=== PATIENT | male | born 1940 | race Two or more races ===

== ENCOUNTER 2023-04-11 22:54 | Inpatient (IN) | payer MEDICARE, OTHER ==
[~2023-04-11] VITALS: Ht 177.8 cm; Wt 51.3 kg
[2023-04-11] MEDS ORDERED: HYDROCODONE/APAP 5/325MG TABLET ONE (23:37)
[2023-04-12] MEDS ORDERED: HYDROCODONE/APAP 5/325MG TABLET PO ONE
[2023-04-12 01:22] LABS: BASOPHILS # (AUTO) 0.1 K/uL (0.0-0.2); BASOPHILS % (AUTO) 0.5 % (0.0-2.0); EOSINOPHILS # (AUTO) 0.1 K/uL (0.0-0.7); EOSINOPHILS % (AUTO) 1.1 % (0.0-6.0); HEMATOCRIT 26 % (39-51); HEMOGLOBIN 8.4 g/dL (13.5-17.5); LYMPHOCYTES % (AUTO) 9.5 % (20.0-44.0); MEAN CORPUSCULAR HEMOGLOBIN 31 PG (26.0-33.0); MEAN CORPUSCULAR HGB CONC 33 g/dl (31.0-36.0); MEAN CORPUSCULAR VOLUME 93 fL (80-96); MONOCYTES # (AUTO) 0.7 K/uL (0.1-1.30); MONOCYTES % (AUTO) 6.8 % (2.0-12.0); NEUTROPHILS # (AUTO) 8.4 K/uL (1.8-8.9); NEUTROPHILS % (AUTO) 82.1 % (43.0-81.0); PLATELET COUNT (AUTO) 218 K/uL (150-450); RED BLOOD CELL COUNT(AUTO) 2.75 MIL/uL (4.5-6.0); RED CELL DISTRIBUTION WIDTH 16.5 % (11.5-15.0); WHITE BLOOD COUNT (AUTO) 10.2 K/uL (4.3-11.0)
[2023-04-12 01:31] LABS: CALCIUM, SERUM 9.3 mg/dL (8.5-10.1); CARBON DIOXIDE 18 mmol/L (21-32); CHLORIDE 108 mmol/L (98-107); CREATININE 5.8 mg/dL (0.6-1.3); GLUCOSE 97 mg/dL (74-106); POTASSIUM 4.7 mmol/L (3.5-5.1); SODIUM SERUM 139 mmol/L (136-145); UREA NITROGEN, BLOOD 56 mg/dL (7-18)
[2023-04-12 01:35] LABS: INR 0.98 (0.91-1.10); PARTIAL THROMBOPLASTIN TIME 28.2 SEC (24.3-34.3); PROTHROMBIN TIME 10.3 SECS (9.2-11.1)
[2023-04-12] MEDS ORDERED: IV NS 0.9% 1,000 ML BAG IV ONE (02:00)
[2023-04-12 02:50] VITALS: BP 130/60; TEMP 99; O2SAT 96
[2023-04-12] MEDS ORDERED: ONDANSETRON HCL/PF 4 MG/2 ML VIAL IVP PRN (03:00)
[2023-04-12] MEDS: MORPHINE SULFATE INJ 2 MG/ML DISP.SYRIN IV PRN ×3 (03:17→14:02)
[2023-04-12] MEDS: IV NS 0.9% 1,000 ML IV PRN ×2 (03:18→17:50)
[2023-04-12 04:00] VITALS: BP 130/60; TEMP 99; O2SAT 96
[2023-04-12 05:54] LABS: BASOPHILS % (AUTO) 0.5 % (0.0-2.0); EOSINOPHILS # (AUTO) 0.1 K/uL (0.0-0.7); EOSINOPHILS % (AUTO) 0.9 % (0.0-6.0); HEMATOCRIT 25 % (39-51); HEMOGLOBIN 8.1 g/dL (13.5-17.5); LYMPHOCYTES # (AUTO) 0.9 K/uL (0.8-4.8); LYMPHOCYTES % (AUTO) 9.5 % (20.0-44.0); MEAN CORPUSCULAR HEMOGLOBIN 31 PG (26.0-33.0); MEAN CORPUSCULAR HGB CONC 33 g/dl (31.0-36.0); MEAN CORPUSCULAR VOLUME 95 fL (80-96); MONOCYTES # (AUTO) 0.7 K/uL (0.1-1.30); MONOCYTES % (AUTO) 7.2 % (2.0-12.0); NEUTROPHILS # (AUTO) 7.8 K/uL (1.8-8.9); NEUTROPHILS % (AUTO) 81.9 % (43.0-81.0); PLATELET COUNT (AUTO) 204 K/uL (150-450); RED BLOOD CELL COUNT(AUTO) 2.62 MIL/uL (4.5-6.0); RED CELL DISTRIBUTION WIDTH 16.5 % (11.5-15.0); WHITE BLOOD COUNT (AUTO) 9.6 K/uL (4.3-11.0)
[2023-04-12 06:20] LABS: CALCIUM, SERUM 9.3 mg/dL (8.5-10.1); CARBON DIOXIDE 17 mmol/L (21-32); CHLORIDE 108 mmol/L (98-107); CREATININE 5.7 mg/dL (0.6-1.3); GLUCOSE 93 mg/dL (74-106); POTASSIUM 4.7 mmol/L (3.5-5.1); SODIUM SERUM 139 mmol/L (136-145); UREA NITROGEN, BLOOD 57 mg/dL (7-18)
[2023-04-12 08:00] VITALS: BP 127/71; TEMP 98.2; O2SAT 100
[2023-04-12] MEDS ORDERED: ATOR40TA PO (08:17)
[2023-04-12] MEDS ORDERED: MIRT7.5T10 PO (08:17)
[2023-04-12] MEDS ORDERED: ALPR0.255 PO (08:17)
[2023-04-12] MEDS ORDERED: AMLO-212 PO (08:17)
[2023-04-12] MEDS ORDERED: DOCU-141 PO (08:17)
[2023-04-12] MEDS ORDERED: LOSA50TA39 PO (08:17)
[2023-04-12] MEDS ORDERED: TRAZ-182 PO (08:17)
[2023-04-12] MEDS: DOCUSATE SODIUM 100 MG CAPSULE PO SCH ×2 (10:37→17:06)
[2023-04-12] MEDS: HYDROCODONE/APAP 5/325MG TABLET PO PRN (15:03)
[2023-04-12 15:30] LABS: APPEARANCE,URINE SLIGHTLY CLOUDY (CLEAR); BILIRUBIN,URINE NEGATIVE (NEGATIVE); BLOOD, URINE 3+ Ery/uL (NEGATIVE); COLOR,URINE YELLOW (YELLOW); KETONES,URINE NEGATIVE (NEGATIVE); LEUKOCYTE ESTERASE ,URINE TRACE (NEGATIVE); NITRITE, URINE NEGATIVE (NEGATIVE); PROTEIN,URINE 2+ mg/dl (NEGATIVE); UGLUCOSE NEGATIVE (NEGATIVE); UROBILINOGEN,URINE 0.2 EU/dL (0.2)
[2023-04-12 15:32] LABS: CREATININE, URINE 69.8 MG/DL (30.0-125.0); URINE TOTAL PROTEIN 130.2 mg/dL (0-11.9)
[2023-04-12 15:37] VITALS: BP 126/75; TEMP 98.6; O2SAT 96
[2023-04-12 16:14] LABS: ADD URINE CULTURE NO; BACTERIA,URINE None seen /HPF (None Seen); MUCUS,URINE Moderate /LPF (None Seen); RBC,URINE 51-80 /HPF (0-2); SQUAMOUS EPITHELIAL CELL,UR None Seen /HPF (None Seen)
[2023-04-12 17:11] LABS: EOSINOPHIL,URINE Few
[2023-04-12 19:00] VITALS: BP 139/78; TEMP 98.9; O2SAT 94
[2023-04-13] MEDS ORDERED: diphenhydrAMINE HCL ELIX 25 MG/10 ML UDC PO PRN (03:00)
[2023-04-13] MEDS: MORPHINE SULFATE INJ 2 MG/ML DISP.SYRIN IV PRN ×2 (05:11→17:51)
[2023-04-13 08:18] VITALS: BP 125/84; TEMP 98.2; O2SAT 96
[2023-04-13] MEDS ORDERED: Z GUARD REMEDY 4 OZ OINT TP PRN (09:00)
[2023-04-13] MEDS ORDERED: PERMETHRIN 5% CRM 60 GM TUBE TP ONE ×2 (09:00→09:30)
[2023-04-13] MEDS: DOCUSATE SODIUM 100 MG CAPSULE PO SCH (09:16)
[2023-04-13] MEDS: Z GUARD REMEDY 4 OZ OINT TP SCH (09:16)
[2023-04-13] MEDS ORDERED: NEPRO VAN 237 ML CAN PO PRN (11:00)
[2023-04-13 15:54] VITALS: BP 149/85; TEMP 97.9; O2SAT 95
[2023-04-13] MEDS: HYDROCODONE/APAP 5/325MG TABLET PO PRN (16:37)
[2023-04-13] MEDS: IV NS 0.9% 1,000 ML IV PRN (16:55)
[2023-04-13 20:00] VITALS: BP 137/77; TEMP 98.2; O2SAT 97
[2023-04-14] MEDS: HYDROCODONE/APAP 5/325MG TABLET PO PRN ×2 (05:49→17:22)
[2023-04-14 06:03] LABS: BASOPHILS % (AUTO) 0.3 % (0.0-2.0); EOSINOPHILS # (AUTO) 0.2 K/uL (0.0-0.7); HEMATOCRIT 24 % (39-51); HEMOGLOBIN 7.5 g/dL (13.5-17.5); LYMPHOCYTES # (AUTO) 0.7 K/uL (0.8-4.8); LYMPHOCYTES % (AUTO) 7.9 % (20.0-44.0); MEAN CORPUSCULAR HEMOGLOBIN 31 PG (26.0-33.0); MEAN CORPUSCULAR HGB CONC 32 g/dl (31.0-36.0); MEAN CORPUSCULAR VOLUME 97 fL (80-96); MONOCYTES # (AUTO) 0.8 K/uL (0.1-1.30); MONOCYTES % (AUTO) 9.2 % (2.0-12.0); NEUTROPHILS % (AUTO) 80.6 % (43.0-81.0); PLATELET COUNT (AUTO) 174 K/uL (150-450); RED BLOOD CELL COUNT(AUTO) 2.45 MIL/uL (4.5-6.0); RED CELL DISTRIBUTION WIDTH 16.6 % (11.5-15.0); WHITE BLOOD COUNT (AUTO) 8.7 K/uL (4.3-11.0)
[2023-04-14 06:24] LABS: CALCIUM, SERUM 8.9 mg/dL (8.5-10.1); CARBON DIOXIDE 16 mmol/L (21-32); CHLORIDE 111 mmol/L (98-107); CREATININE 5.3 mg/dL (0.6-1.3); GLUCOSE 100 mg/dL (74-106); POTASSIUM 4.5 mmol/L (3.5-5.1); SODIUM SERUM 141 mmol/L (136-145); UREA NITROGEN, BLOOD 56 mg/dL (7-18)
[2023-04-14 07:00] VITALS: BP 138/69; TEMP 98.4; O2SAT 98
[2023-04-14] MEDS: IV NS 0.9% 1,000 ML IV PRN ×2 (07:51→23:40)
[2023-04-14] MEDS: DOCUSATE SODIUM 100 MG CAPSULE PO SCH ×2 (09:00→17:22)
[2023-04-14] MEDS: Z GUARD REMEDY 4 OZ OINT TP SCH (09:16)
[2023-04-14 16:00] VITALS: BP 146/75; TEMP 98; O2SAT 98
[2023-04-14 20:00] VITALS: BP 146/82; TEMP 98.7; O2SAT 97
[2023-04-14] MEDS ORDERED: TRAZODONE 50 MG TABLET PO PRN (22:00)
[2023-04-14] MEDS ORDERED: TEMAZEPAM 7.5 MG CAPSULE PO PRN (22:30)
[2023-04-15 06:05] LABS: BASOPHILS % (AUTO) 0.3 % (0.0-2.0); EOSINOPHILS # (AUTO) 0.2 K/uL (0.0-0.7); EOSINOPHILS % (AUTO) 2.1 % (0.0-6.0); HEMATOCRIT 24 % (39-51); LYMPHOCYTES # (AUTO) 0.5 K/uL (0.8-4.8); LYMPHOCYTES % (AUTO) 5.9 % (20.0-44.0); MEAN CORPUSCULAR HEMOGLOBIN 30 PG (26.0-33.0); MEAN CORPUSCULAR HGB CONC 33 g/dl (31.0-36.0); MEAN CORPUSCULAR VOLUME 92 fL (80-96); MONOCYTES # (AUTO) 0.7 K/uL (0.1-1.30); MONOCYTES % (AUTO) 7.8 % (2.0-12.0); NEUTROPHILS # (AUTO) 7.2 K/uL (1.8-8.9); NEUTROPHILS % (AUTO) 83.9 % (43.0-81.0); PLATELET COUNT (AUTO) 193 K/uL (150-450); RED BLOOD CELL COUNT(AUTO) 2.64 MIL/uL (4.5-6.0); RED CELL DISTRIBUTION WIDTH 16.3 % (11.5-15.0); WHITE BLOOD COUNT (AUTO) 8.6 K/uL (4.3-11.0)
[2023-04-15] MEDS: MORPHINE SULFATE INJ 2 MG/ML DISP.SYRIN IV PRN ×2 (06:10→10:57)
[2023-04-15 08:00] VITALS: BP 168/81; TEMP 97.4; O2SAT 95
[2023-04-15 08:48] LABS: CALCIUM, SERUM 8.7 mg/dL (8.5-10.1); CARBON DIOXIDE 15 mmol/L (21-32); CHLORIDE 113 mmol/L (98-107); CREATININE 5.3 mg/dL (0.6-1.3); GLUCOSE 102 mg/dL (74-106); POTASSIUM 4.1 mmol/L (3.5-5.1); SODIUM SERUM 142 mmol/L (136-145); UREA NITROGEN, BLOOD 55 mg/dL (7-18)
[2023-04-15] MEDS: DOCUSATE SODIUM 100 MG CAPSULE PO SCH ×2 (10:57→17:47)
[2023-04-15] MEDS: Z GUARD REMEDY 4 OZ OINT TP SCH (11:04)
[2023-04-15 12:07] LABS: HEPATITIS B SURFACE AB Non Reactive (.)
[2023-04-15] MEDS: HYDROCODONE/APAP 5/325MG TABLET PO PRN ×2 (13:14→19:52)
[2023-04-15] MEDS: IV NS 0.9% 1,000 ML IV PRN (14:56)
[2023-04-15 16:00] VITALS: BP 150/58; TEMP 98.9; O2SAT 96
[2023-04-15 20:00] VITALS: BP 156/84; TEMP 98.4; O2SAT 95
[2023-04-15] MEDS ORDERED: TRAZODONE 50 MG TABLET PO PRN (21:00)
[2023-04-16] MEDS: MORPHINE SULFATE INJ 2 MG/ML DISP.SYRIN IV PRN ×3 (00:15→18:32)
[2023-04-16] MEDS: IV NS 0.9% 1,000 ML IV PRN (05:51)
[2023-04-16 08:00] VITALS: BP 162/78; TEMP 97.4; O2SAT 96
[2023-04-16] MEDS: HYDROCODONE/APAP 5/325MG TABLET PO PRN ×2 (08:23→15:10)
[2023-04-16] MEDS: DOCUSATE SODIUM 100 MG CAPSULE PO SCH ×2 (08:23→17:10)
[2023-04-16] MEDS: Z GUARD REMEDY 4 OZ OINT TP SCH (08:24)
[2023-04-16 08:55] LABS: BASOPHILS % (AUTO) 0.3 % (0.0-2.0); EOSINOPHILS # (AUTO) 0.2 K/uL (0.0-0.7); HEMATOCRIT 22 % (39-51); HEMOGLOBIN 7.2 g/dL (13.5-17.5); LYMPHOCYTES # (AUTO) 0.7 K/uL (0.8-4.8); LYMPHOCYTES % (AUTO) 8.8 % (20.0-44.0); MEAN CORPUSCULAR HEMOGLOBIN 30 PG (26.0-33.0); MEAN CORPUSCULAR HGB CONC 33 g/dl (31.0-36.0); MEAN CORPUSCULAR VOLUME 93 fL (80-96); MONOCYTES # (AUTO) 0.7 K/uL (0.1-1.30); MONOCYTES % (AUTO) 7.8 % (2.0-12.0); NEUTROPHILS # (AUTO) 6.9 K/uL (1.8-8.9); NEUTROPHILS % (AUTO) 81.1 % (43.0-81.0); PLATELET COUNT (AUTO) 190 K/uL (150-450); RED CELL DISTRIBUTION WIDTH 16.3 % (11.5-15.0); WHITE BLOOD COUNT (AUTO) 8.5 K/uL (4.3-11.0)
[2023-04-16 09:21] LABS: CALCIUM, SERUM 8.5 mg/dL (8.5-10.1); CARBON DIOXIDE 14 mmol/L (21-32); CHLORIDE 114 mmol/L (98-107); CREATININE 4.9 mg/dL (0.6-1.3); GLUCOSE 98 mg/dL (74-106); POTASSIUM 4.2 mmol/L (3.5-5.1); SODIUM SERUM 141 mmol/L (136-145); UREA NITROGEN, BLOOD 55 mg/dL (7-18)
[2023-04-16] MEDS ORDERED: ALPRAZOLAM 0.25 MG TABLET PO PRN (11:30)
[2023-04-16] MEDS: ACETAMINOPHEN 325 MG TABLET PO PRN ×2 (15:46→21:51)
[2023-04-16 16:00] VITALS: BP 158/71; TEMP 98.2; O2SAT 98
[2023-04-16] MEDS ORDERED: DOCUSATE SODIUM 100 MG CAPSULE PO SCH (17:00)
[2023-04-16 21:30] VITALS: BP 164/85; TEMP 98.4; O2SAT 95
[2023-04-16] MEDS: TRAZODONE 50 MG TABLET PO SCH (21:50)
[2023-04-17] VITALS (7 sets, daily range): BP systolic 127–144; BP diastolic 65–81; TEMP 97.8–98.9; O2SAT 96–97
[2023-04-17] MEDS: ACETAMINOPHEN 325 MG TABLET PO PRN ×2 (05:24→16:56)
[2023-04-17 05:58] LABS: BASOPHILS % (AUTO) 0.5 % (0.0-2.0); EOSINOPHILS # (AUTO) 0.4 K/uL (0.0-0.7); EOSINOPHILS % (AUTO) 3.9 % (0.0-6.0); HEMATOCRIT 22 % (39-51); HEMOGLOBIN 7.3 g/dL (13.5-17.5); LYMPHOCYTES # (AUTO) 0.7 K/uL (0.8-4.8); LYMPHOCYTES % (AUTO) 7.6 % (20.0-44.0); MEAN CORPUSCULAR HEMOGLOBIN 30 PG (26.0-33.0); MEAN CORPUSCULAR HGB CONC 33 g/dl (31.0-36.0); MEAN CORPUSCULAR VOLUME 91 fL (80-96); MONOCYTES # (AUTO) 0.7 K/uL (0.1-1.30); MONOCYTES % (AUTO) 7.8 % (2.0-12.0); NEUTROPHILS # (AUTO) 7.3 K/uL (1.8-8.9); NEUTROPHILS % (AUTO) 80.2 % (43.0-81.0); PLATELET COUNT (AUTO) 209 K/uL (150-450); RED BLOOD CELL COUNT(AUTO) 2.42 MIL/uL (4.5-6.0); RED CELL DISTRIBUTION WIDTH 16.1 % (11.5-15.0)
[2023-04-17 06:31] LABS: CALCIUM, SERUM 9.2 mg/dL (8.5-10.1); CARBON DIOXIDE 23 mmol/L (21-32); CHLORIDE 110 mmol/L (98-107); CREATININE 3.4 mg/dL (0.6-1.3); GLUCOSE 106 mg/dL (74-106); POTASSIUM 3.8 mmol/L (3.5-5.1); SODIUM SERUM 144 mmol/L (136-145); UREA NITROGEN, BLOOD 31 mg/dL (7-18)
[2023-04-17] MEDS: DOCUSATE SODIUM 100 MG CAPSULE PO SCH ×2 (09:00→17:55)
[2023-04-17] MEDS: AMLODIPINE BESYLATE 5 MG TABLET PO SCH (09:01)
[2023-04-17] MEDS: LOSARTAN POTASSIUM 50 MG TABLET PO SCH (09:01)
[2023-04-17] MEDS: Z GUARD REMEDY 4 OZ OINT TP SCH (09:01)
[2023-04-17] MEDS ORDERED: FENTANYL PF 100MCG/2ML AMPUL ONE (10:19)
[2023-04-17] MEDS ORDERED: ALBUMIN 5% 250 ML IV ONE ×2 (10:19→10:20)
[2023-04-17] MEDS ORDERED: KETAMINE HCL(200MG/20ML) 10 MG/ML VIAL ONE (10:19)
[2023-04-17] MEDS ORDERED: Magnesium 1 GM/2 ML VIAL ONE (10:20)
[2023-04-17] MEDS ORDERED: FAMOTIDINE/PF INJ 20 MG/2 ML VIAL IV ONE (10:20)
[2023-04-17] MEDS ORDERED: CALCIUM CHLORIDE 1,000 MG/10 ML DISP.SYRIN ONE (10:41)
[2023-04-17] MEDS ORDERED: BUPIVACAINE 0.5 % PF 150 MG/30 ML VIAL ONE (10:53)
[2023-04-17] MEDS ORDERED: POLYMYXIN B SULFATE 0 UNITS ONE (10:53)
[2023-04-17] MEDS ORDERED: BUPIVACAINE 0.25% 75 MG/30 ML VIAL ONE (10:53)
[2023-04-17] MEDS: HYDROCODONE/APAP 5/325MG TABLET PO PRN (18:22)
[2023-04-17] MEDS: TRAZODONE 50 MG TABLET PO SCH (21:11)
[2023-04-17] MEDS: ALPRAZOLAM 0.5 MG TABLET PO PRN (22:19)
[2023-04-17 23:20] LABS: INR 0.98 (0.91-1.10); PROTHROMBIN TIME 10.3 SECS (9.2-11.1)
[2023-04-18 02:59] LABS: HEMOGLOBIN 8.3 g/dL (13.5-17.5)
[2023-04-18] MEDS ORDERED: POLYMYXIN B SULFATE 500,000 UNITS ONE (05:29)
[2023-04-18] MEDS ORDERED: BUPIVACAINE 0.25% 75 MG/30 ML VIAL ONE (05:29)
[2023-04-18] MEDS ORDERED: ANESTHESIA TRAY IN PYXIS 1 EA TRAY MC ONE (05:29)
[2023-04-18] MEDS ORDERED: TRANEXAMIC ACID 1,000 MG/10 ML VIAL ONE (05:51)
[2023-04-18] MEDS ORDERED: ROPIVACAINE HCL 0.5% 5 MG/ML 30ML VIAL ONE (05:52)
[2023-04-18] MEDS ORDERED: Magnesium 1 GM/2 ML VIAL ONE (05:52)
[2023-04-18] MEDS ORDERED: ALBUMIN 5% 250 ML IV ONE (05:52)
[2023-04-18] MEDS ORDERED: FENTANYL PF 100MCG/2ML AMPUL ONE (05:52)
[2023-04-18] MEDS ORDERED: FAMOTIDINE/PF INJ 20 MG/2 ML VIAL IV ONE (05:53)
[2023-04-18] MEDS: LOSARTAN POTASSIUM 50 MG TABLET PO SCH (09:00)
[2023-04-18] MEDS: DOCUSATE SODIUM 100 MG CAPSULE PO SCH ×2 (09:00→16:10)
[2023-04-18] MEDS: Z GUARD REMEDY 4 OZ OINT TP SCH (09:00)
[2023-04-18] MEDS: AMLODIPINE BESYLATE 5 MG TABLET PO SCH (09:00)
[2023-04-18 11:56] LABS: BASOPHILS % (AUTO) 0.2 % (0.0-2.0); EOSINOPHILS % (AUTO) 0.2 % (0.0-6.0); HEMATOCRIT 25 % (39-51); HEMOGLOBIN 8.5 g/dL (13.5-17.5); LYMPHOCYTES # (AUTO) 0.3 K/uL (0.8-4.8); LYMPHOCYTES % (AUTO) 3.9 % (20.0-44.0); MEAN CORPUSCULAR HEMOGLOBIN 31 PG (26.0-33.0); MEAN CORPUSCULAR HGB CONC 34 g/dl (31.0-36.0); MEAN CORPUSCULAR VOLUME 92 fL (80-96); MONOCYTES # (AUTO) 0.3 K/uL (0.1-1.30); MONOCYTES % (AUTO) 3.8 % (2.0-12.0); NEUTROPHILS # (AUTO) 7.9 K/uL (1.8-8.9); NEUTROPHILS % (AUTO) 91.9 % (43.0-81.0); PLATELET COUNT (AUTO) 207 K/uL (150-450); RED BLOOD CELL COUNT(AUTO) 2.77 MIL/uL (4.5-6.0); RED CELL DISTRIBUTION WIDTH 15.9 % (11.5-15.0); WHITE BLOOD COUNT (AUTO) 8.5 K/uL (4.3-11.0)
[2023-04-18] MEDS: ANCEF 1 GM/50 ML D5W IV SCH ×4 (14:21→21:03)
[2023-04-18 16:06] VITALS: BP 127/69; TEMP 97.9; O2SAT 92
[2023-04-18] MEDS: ACETAMINOPHEN 325 MG TABLET PO PRN (16:10)
[2023-04-18 20:00] VITALS: BP 145/71; TEMP 97.5; O2SAT 96
[2023-04-18] MEDS: ALPRAZOLAM 0.5 MG TABLET PO PRN (20:00)
[2023-04-18] MEDS: TRAZODONE 50 MG TABLET PO SCH (21:03)
[2023-04-18] MEDS: HYDROCODONE/APAP 5/325MG TABLET PO PRN (22:26)
[2023-04-19 03:06] LABS: HEPATITIS B CORE AB, IgM Negative (Negative); HEPATITIS B CORE AB, TOTAL Negative (Negative); HEPATITIS B SURFACE AB Non Reactive (.)
[2023-04-19 05:57] LABS: BASOPHILS % (AUTO) 0.4 % (0.0-2.0); EOSINOPHILS # (AUTO) 0.1 K/uL (0.0-0.7); EOSINOPHILS % (AUTO) 1.1 % (0.0-6.0); HEMATOCRIT 23 % (39-51); HEMOGLOBIN 7.7 g/dL (13.5-17.5); LYMPHOCYTES # (AUTO) 0.8 K/uL (0.8-4.8); LYMPHOCYTES % (AUTO) 8.6 % (20.0-44.0); MEAN CORPUSCULAR HEMOGLOBIN 31 PG (26.0-33.0); MEAN CORPUSCULAR HGB CONC 34 g/dl (31.0-36.0); MEAN CORPUSCULAR VOLUME 91 fL (80-96); MONOCYTES # (AUTO) 0.7 K/uL (0.1-1.30); MONOCYTES % (AUTO) 8.4 % (2.0-12.0); NEUTROPHILS # (AUTO) 7.1 K/uL (1.8-8.9); NEUTROPHILS % (AUTO) 81.5 % (43.0-81.0); PLATELET COUNT (AUTO) 215 K/uL (150-450); RED BLOOD CELL COUNT(AUTO) 2.52 MIL/uL (4.5-6.0); WHITE BLOOD COUNT (AUTO) 8.7 K/uL (4.3-11.0)
[2023-04-19 06:14] LABS: CALCIUM, SERUM 8.7 mg/dL (8.5-10.1); CARBON DIOXIDE 23 mmol/L (21-32); CHLORIDE 105 mmol/L (98-107); CREATININE 3.3 mg/dL (0.6-1.3); GLUCOSE 105 mg/dL (74-106); MAGNESIUM 2.2 mg/dL (1.8-2.4); PHOSPHORUS 3.5 mg/dL (2.5-4.9); POTASSIUM 3.8 mmol/L (3.5-5.1); SODIUM SERUM 138 mmol/L (136-145); UREA NITROGEN, BLOOD 30 mg/dL (7-18)
[2023-04-19 08:00] VITALS: BP 109/58; TEMP 98.4; O2SAT 100
[2023-04-19] MEDS: AMLODIPINE BESYLATE 5 MG TABLET PO SCH (09:00)
[2023-04-19] MEDS: DOCUSATE SODIUM 100 MG CAPSULE PO SCH ×2 (09:00→17:11)
[2023-04-19] MEDS: LOSARTAN POTASSIUM 50 MG TABLET PO SCH (09:00)
[2023-04-19] MEDS: Z GUARD REMEDY 4 OZ OINT TP SCH (09:03)
[2023-04-19 09:24] LABS: IRON, SERUM 18 ug/dl (50-175); TOTAL IRON BINDING CAPACITY 99 ug/dl (250-450)
[2023-04-19 09:53] LABS: FERRITIN 500 ng/mL (8-388)
[2023-04-19] MEDS: MORPHINE SULFATE INJ 2 MG/ML DISP.SYRIN IV PRN (10:10)
[2023-04-19] MEDS: ACETAMINOPHEN 325 MG TABLET PO PRN ×2 (10:27→17:11)
[2023-04-19 16:00] VITALS: BP 179/96; TEMP 98.4; O2SAT 97
[2023-04-19 20:00] VITALS: BP 136/75; TEMP 96.8; O2SAT 96
[2023-04-19] MEDS: ALPRAZOLAM 0.5 MG TABLET PO PRN (20:56)
[2023-04-19] MEDS: TRAZODONE 50 MG TABLET PO SCH ×2 (22:00→23:01)
[2023-04-20 04:00] VITALS: BP 147/84; TEMP 98.2; O2SAT 98
[2023-04-20 06:23] LABS: BASOPHILS % (AUTO) 0.6 % (0.0-2.0); EOSINOPHILS # (AUTO) 0.1 K/uL (0.0-0.7); EOSINOPHILS % (AUTO) 1.6 % (0.0-6.0); HEMATOCRIT 24 % (39-51); LYMPHOCYTES # (AUTO) 0.8 K/uL (0.8-4.8); LYMPHOCYTES % (AUTO) 8.8 % (20.0-44.0); MEAN CORPUSCULAR HEMOGLOBIN 31 PG (26.0-33.0); MEAN CORPUSCULAR HGB CONC 34 g/dl (31.0-36.0); MEAN CORPUSCULAR VOLUME 91 fL (80-96); MONOCYTES # (AUTO) 0.7 K/uL (0.1-1.30); PLATELET COUNT (AUTO) 241 K/uL (150-450); RED BLOOD CELL COUNT(AUTO) 2.62 MIL/uL (4.5-6.0); RED CELL DISTRIBUTION WIDTH 15.8 % (11.5-15.0); WHITE BLOOD COUNT (AUTO) 8.7 K/uL (4.3-11.0)
[2023-04-20 07:52] LABS: ALANINE AMINOTRANSFERASE 10 U/L (12-78); ALBUMIN 2.4 g/dL (3.4-5.0); ALKALINE PHOSPHATASE 88 U/L (46-116); ASPARTATE AMINOTRANSFERASE 25 U/L (15-37); BILIRUBIN,TOTAL 0.3 mg/dL (0.2-1.0); CARBON DIOXIDE 22 mmol/L (21-32); CHLORIDE 105 mmol/L (98-107); CREATININE 2.4 mg/dL (0.6-1.3); GLUCOSE 98 mg/dL (74-106); POTASSIUM 3.1 mmol/L (3.5-5.1); SODIUM SERUM 138 mmol/L (136-145); TOTAL PROTEIN, SERUM 6.6 g/dL (6.4-8.2); UREA NITROGEN, BLOOD 21 mg/dL (7-18)
[2023-04-20 08:16] VITALS: BP 143/83; TEMP 98; O2SAT 98
[2023-04-20] MEDS: LOSARTAN POTASSIUM 50 MG TABLET PO SCH (09:07)
[2023-04-20] MEDS: DOCUSATE SODIUM 100 MG CAPSULE PO SCH ×2 (09:08→16:57)
[2023-04-20] MEDS: Z GUARD REMEDY 4 OZ OINT TP SCH (09:08)
[2023-04-20] MEDS: AMLODIPINE BESYLATE 5 MG TABLET PO SCH (09:08)
[2023-04-20] MEDS: ENOXAPARIN SODIUM 30 MG/0.3 ML DISP.SYRIN SQ SCH (12:03)
[2023-04-20] MEDS ORDERED: POTASSIUM CHLORIDE 10 MEQ TABLET.SA PO ONE (13:30)
[2023-04-20 16:07] VITALS: BP 148/84; TEMP 98.5; O2SAT 100
[2023-04-20 20:56] VITALS: BP 145/76; TEMP 98; O2SAT 97
[2023-04-20] MEDS: TRAZODONE 50 MG TABLET PO SCH (21:01)
[2023-04-20] MEDS: ALPRAZOLAM 0.5 MG TABLET PO PRN (22:07)
[2023-04-21 05:48] LABS: BASOPHILS # (AUTO) 0.1 K/uL (0.0-0.2); BASOPHILS % (AUTO) 0.6 % (0.0-2.0); EOSINOPHILS # (AUTO) 0.2 K/uL (0.0-0.7); EOSINOPHILS % (AUTO) 2.4 % (0.0-6.0); HEMATOCRIT 22 % (39-51); HEMOGLOBIN 7.4 g/dL (13.5-17.5); LYMPHOCYTES # (AUTO) 0.8 K/uL (0.8-4.8); LYMPHOCYTES % (AUTO) 10.1 % (20.0-44.0); MEAN CORPUSCULAR HEMOGLOBIN 30 PG (26.0-33.0); MEAN CORPUSCULAR HGB CONC 33 g/dl (31.0-36.0); MEAN CORPUSCULAR VOLUME 91 fL (80-96); MONOCYTES # (AUTO) 0.7 K/uL (0.1-1.30); NEUTROPHILS # (AUTO) 6.6 K/uL (1.8-8.9); NEUTROPHILS % (AUTO) 78.9 % (43.0-81.0); PLATELET COUNT (AUTO) 226 K/uL (150-450); RED BLOOD CELL COUNT(AUTO) 2.45 MIL/uL (4.5-6.0); RED CELL DISTRIBUTION WIDTH 15.5 % (11.5-15.0); WHITE BLOOD COUNT (AUTO) 8.4 K/uL (4.3-11.0)
[2023-04-21 06:04] LABS: CALCIUM, SERUM 8.8 mg/dL (8.5-10.1); CARBON DIOXIDE 23 mmol/L (21-32); CHLORIDE 106 mmol/L (98-107); CREATININE 3.4 mg/dL (0.6-1.3); GLUCOSE 101 mg/dL (74-106); MAGNESIUM 2.1 mg/dL (1.8-2.4); PHOSPHORUS 3.3 mg/dL (2.5-4.9); POTASSIUM 3.4 mmol/L (3.5-5.1); SODIUM SERUM 139 mmol/L (136-145); UREA NITROGEN, BLOOD 33 mg/dL (7-18)
[2023-04-21] MEDS ORDERED: HEPARIN SODIUM, PORCINE 1,000 UNIT/ML VIAL ONE (07:16)
[2023-04-21] MEDS ORDERED: LIDOCAINE 1% INJ 50 ML MDV IJ ONE (07:16)
[2023-04-21] MEDS ORDERED: ANESTHESIA TRAY IN PYXIS 1 EA TRAY MC ONE (07:16)
[2023-04-21 08:00] VITALS: BP 144/79; TEMP 97.8; O2SAT 98
[2023-04-21] MEDS: LOSARTAN POTASSIUM 50 MG TABLET PO SCH (08:19)
[2023-04-21] MEDS: AMLODIPINE BESYLATE 5 MG TABLET PO SCH (08:20)
[2023-04-21] MEDS: DOCUSATE SODIUM 100 MG CAPSULE PO SCH ×2 (09:17→17:07)
[2023-04-21] MEDS: Z GUARD REMEDY 4 OZ OINT TP SCH (09:26)
[2023-04-21] MEDS: ENOXAPARIN SODIUM 30 MG/0.3 ML DISP.SYRIN SQ SCH (12:00)
[2023-04-21] MEDS ORDERED: FENTANYL PF 100MCG/2ML AMPUL ONE (14:18)
[2023-04-21] MEDS ORDERED: FAMOTIDINE/PF INJ 20 MG/2 ML VIAL IV ONE (14:18)
[2023-04-21] MEDS ORDERED: KETAMINE HCL(200MG/20ML) 10 MG/ML VIAL ONE (14:18)
[2023-04-21] MEDS ORDERED: IOHEXOL 50 ML IV ONE (14:59)
[2023-04-21 16:21] VITALS: BP 153/98; TEMP 98.9; O2SAT 99
[2023-04-21] MEDS: ACETAMINOPHEN 325 MG TABLET PO PRN (17:24)
[2023-04-21 20:00] VITALS: BP 148/80; TEMP 98.1; O2SAT 98
[2023-04-21] MEDS: TRAZODONE 50 MG TABLET PO SCH (21:09)
[2023-04-21] MEDS: HYDROCODONE/APAP 5/325MG TABLET PO PRN (21:37)
[2023-04-21] MEDS: ANCEF 1 GM/50 ML D5W IV SCH ×2 (23:09)
[2023-04-22 05:52] LABS: BASOPHILS % (AUTO) 0.5 % (0.0-2.0); EOSINOPHILS # (AUTO) 0.2 K/uL (0.0-0.7); EOSINOPHILS % (AUTO) 1.9 % (0.0-6.0); HEMATOCRIT 22 % (39-51); HEMOGLOBIN 7.5 g/dL (13.5-17.5); LYMPHOCYTES # (AUTO) 0.7 K/uL (0.8-4.8); LYMPHOCYTES % (AUTO) 7.7 % (20.0-44.0); MEAN CORPUSCULAR HEMOGLOBIN 30 PG (26.0-33.0); MEAN CORPUSCULAR HGB CONC 34 g/dl (31.0-36.0); MEAN CORPUSCULAR VOLUME 91 fL (80-96); MONOCYTES # (AUTO) 0.8 K/uL (0.1-1.30); MONOCYTES % (AUTO) 8.6 % (2.0-12.0); NEUTROPHILS # (AUTO) 7.2 K/uL (1.8-8.9); NEUTROPHILS % (AUTO) 81.3 % (43.0-81.0); PLATELET COUNT (AUTO) 255 K/uL (150-450); RED BLOOD CELL COUNT(AUTO) 2.46 MIL/uL (4.5-6.0); RED CELL DISTRIBUTION WIDTH 15.7 % (11.5-15.0); WHITE BLOOD COUNT (AUTO) 8.8 K/uL (4.3-11.0)
[2023-04-22 06:14] LABS: CALCIUM, SERUM 8.8 mg/dL (8.5-10.1); CARBON DIOXIDE 25 mmol/L (21-32); CHLORIDE 104 mmol/L (98-107); CREATININE 3.2 mg/dL (0.6-1.3); GLUCOSE 109 mg/dL (74-106); POTASSIUM 3.2 mmol/L (3.5-5.1); SODIUM SERUM 139 mmol/L (136-145); UREA NITROGEN, BLOOD 29 mg/dL (7-18)
[2023-04-22] MEDS: ANCEF 1 GM/50 ML D5W IV SCH ×2 (06:16)
[2023-04-22 08:00] VITALS: BP 107/61; TEMP 98.1; O2SAT 99
[2023-04-22 08:52] VITALS: BP 107/61
[2023-04-22] MEDS: Z GUARD REMEDY 4 OZ OINT TP SCH (08:52)
[2023-04-22] MEDS: AMLODIPINE BESYLATE 5 MG TABLET PO SCH (08:52)
[2023-04-22] MEDS: DOCUSATE SODIUM 100 MG CAPSULE PO SCH (08:52)
[2023-04-22] MEDS: LOSARTAN POTASSIUM 50 MG TABLET PO SCH (08:52)
[2023-04-22] MEDS ORDERED: Hydrocodone/Apap 5/325MG PO (09:16)
[2023-04-22] MEDS: ENOXAPARIN SODIUM 30 MG/0.3 ML DISP.SYRIN SQ SCH (13:00)
== END 2023-04-22 14:54 | DRG 521 ==
LOC: ER 22:59 → MED 04-12 01:57
PROVIDERS: ADMIT Internal Medicine; ATTEND Internal Medicine
PROC: 5A1D70Z Performance of Urinary Filtration, Intermittent, Less than 6 Hours Per Day (ICD-10-PCS; principal; 2023-04-16)
PROC: 02HV33Z Insertion of Infusion Device into Superior Vena Cava, Percutaneous Approach (ICD-10-PCS; 2023-04-16)
PROC: B548ZZA Ultrasonography of Superior Vena Cava, Guidance (ICD-10-PCS; 2023-04-16)
PROC: 30233N1 Transfusion of Nonautologous Red Blood Cells into Peripheral Vein, Percutaneous Approach (ICD-10-PCS; 2023-04-17)
PROC: 0SRS0J9 Replacement of Left Hip Joint, Femoral Surface with Synthetic Substitute, Cemented, Open Approach (ICD-10-PCS; 2023-04-18)
PROC: 05H533Z Insertion of Infusion Device into Right Subclavian Vein, Percutaneous Approach (ICD-10-PCS; 2023-04-18)
PROC: B546ZZA Ultrasonography of Right Subclavian Vein, Guidance (ICD-10-PCS; 2023-04-18)
PROC: 0JH63XZ Insertion of Tunneled Vascular Access Device into Chest Subcutaneous Tissue and Fascia, Percutaneous Approach (ICD-10-PCS; 2023-04-21)
PROC: 02HV33Z Insertion of Infusion Device into Superior Vena Cava, Percutaneous Approach (ICD-10-PCS; 2023-04-21)
PROC: B518YZA Fluoroscopy of Superior Vena Cava using Other Contrast, Guidance (ICD-10-PCS; 2023-04-21)
PROC: 05PYX3Z Removal of Infusion Device from Upper Vein, External Approach (ICD-10-PCS; 2023-04-21)
DX: S72.012A Unspecified intracapsular fracture of left femur, initial encounter for closed fracture (principal); N18.6 End stage renal disease; I69.354 Hemiplegia and hemiparesis following cerebral infarction affecting left non-dominant side; E46 Unspecified protein-calorie malnutrition; M62.82 Rhabdomyolysis; I12.0 Hypertensive chronic kidney disease with stage 5 chronic kidney disease or end stage renal disease; E44.0 Moderate protein-calorie malnutrition; Z68.1 Body mass index [BMI] 19.9 or less, adult; W18.30XA Fall on same level, unspecified, initial encounter; J44.9 Chronic obstructive pulmonary disease, unspecified; N31.9 Neuromuscular dysfunction of bladder, unspecified; D63.1 Anemia in chronic kidney disease; E87.70 Fluid overload, unspecified; E88.09 Other disorders of plasma-protein metabolism, not elsewhere classified; F32.9 Major depressive disorder, single episode, unspecified; F41.9 Anxiety disorder, unspecified; Z99.3 Dependence on wheelchair; W19.XXXA Unspecified fall, initial encounter; Y93.9 Activity, unspecified; Y92.129 Unspecified place in nursing home as the place of occurrence of the external cause; N25.0 Renal osteodystrophy; R33.9 Retention of urine, unspecified; E83.9 Disorder of mineral metabolism, unspecified
CPT/HCPCS: 36410; 36415; 70450-TC; 70486-TC; 71045-TC; 72125-TC; 72170-TC; 73020; 73502; 76770-TC; 80048-TC; 80053-TC; 81001; 82570-TC; 82607-TC; 82728-TC; 83540-TC; 83735-TC; 84100-TC; 84300-TC; 85025-TC; 85027-TC; 85610-TC; 85730-TC; 86704; 86705; 86706; 86803; 86850-TC; 87081-TC; 87340; 88305-TC; 88311-TC; 90935-TC; 93307-TC; 97110-TC; 97112-TC; 97530-TC; A4217; A4223; A6253; C1713; C1750; C1757; C1769; C1776; C1894; G0378; J0690; J1100; J1644; J1650; J2270; J2370; J2405; J2704; J2765; J2795; J3010; J3475; J3490; J7030; J7040; J7050; J7060; P9016; P9045; Q0163; Q9967